=== PATIENT | female | born 1960 | race Caucasian/White ===

== ENCOUNTER → 2017-11-14 | Day surgery (SDC) | payer OTHER ==
[~2017-11-14] VITALS: Ht 167.6 cm; Wt 77.1 kg
--- NOTE | 2017-11-14 12:49 | Operative Report ---
Operative/Inv Procedure Report Surgery Date: 11/14/17 Name of Procedure: debridement right thumb distal phalanx Pre-Operative Diagnosis: Osteomyelitis rule it out right distal phalanx thumb Post-Operative Diagnosis: Same Estimated Blood Loss: scant Surgeon/Boat Loader Helper: Mac SIDHU,Socrates Berkowitz Anesthesia: moderate sedation, block Operative/Procedure Note Note: She was counseled regards the procedure the alternatives risks and expected outcomes as relates to identifying the presence of osteomyelitis in the right thumb with suggestive x-ray report and history of recurrent infections over a few years. Talked about definitely visible scarring of the skin possibly numbness and sensitivity. We talked about the need for additional surgery based on final pathology and consultation with infectious disease as well as the path And micro-reports. Informed consent was signed. She was taken to the operating room placed supine on the table. Venodyne boots are placed and then anesthesia was given in the right hand was prepped and draped in usual sterile fashion. Oblique incision was made across the volar tip. This was dissected down to the distal phalanx. The bone was not grossly soft but was not as firm as expected in a normal distal phalanx. Debridement was carried out a portion of which was sent for micro/path analysis. Wound was irrigated closed with sutures and a dressing
== END ==
LOC: STS 01:28
DX: M89.8X4 Other specified disorders of bone, hand (principal)
CPT/HCPCS: 87070; 87075; J0690; J2250